=== PATIENT | female | born 1990 | race Caucasian/White ===

== ENCOUNTER 2017-09-06 02:47 | Outpatient (CLI) | payer BC, MEDICAID ==
[~2017-09-06 02:47] MED LIST: ETON68IM; LURA120T PO; QUET-1 PO; SERT25TA PO
== END 2017-09-06 23:59 | disposition home or self-care (01) ==
LOC: DIABETIC 02:47
PROVIDERS: ATTEND Family Medicine
DX: E66.9 Obesity, unspecified (principal)
CPT/HCPCS: 97802

== ENCOUNTER 2018-03-07 01:59 | Outpatient (CLI) | payer MEDICARE, BC, MEDICAID | END 2018-03-07 23:59 | disposition home or self-care (01) | LOC: DIABETIC 01:59 | PROVIDERS: ATTEND Family Medicine | DX: E66.9 Obesity, unspecified (principal) | CPT/HCPCS: 97802 ==

== ENCOUNTER 2018-06-09 02:06 | Outpatient (CLI) | payer MEDICARE, BC, MEDICAID | END 2018-06-09 23:59 | disposition home or self-care (01) | LOC: DIABETIC 02:06 | PROVIDERS: ATTEND Family Medicine | DX: Z71.3 Dietary counseling and surveillance (principal); E66.9 Obesity, unspecified | CPT/HCPCS: 97802 ==

== ENCOUNTER 2018-08-23 02:10 | Outpatient (CLI) | payer MEDICARE, BC, MEDICAID | END 2018-08-23 23:59 | disposition home or self-care (01) | LOC: DIABETIC 02:10 | PROVIDERS: ATTEND Family Medicine | DX: E66.9 Obesity, unspecified (principal); Z71.3 Dietary counseling and surveillance | CPT/HCPCS: 97802 ==

== ENCOUNTER 2018-11-29 04:47 | Outpatient (CLI) | payer MEDICAID | END 2018-11-29 23:59 | disposition home or self-care (01) | LOC: DIABETIC 04:47 | PROVIDERS: ATTEND Family Medicine | DX: E66.9 Obesity, unspecified (principal); Z88.0 Allergy status to penicillin; Z91.041 Radiographic dye allergy status; Z91.013 Allergy to seafood | CPT/HCPCS: 97802 ==

== ENCOUNTER 2019-08-02 18:44 | Emergency (ER) | payer MEDICARE, MEDICAID ==
[~2019-08-02] VITALS: Ht 157.5 cm; Wt 79.0 kg
--- NOTE | 2019-08-02 18:54 | NUR ---
pt moved from triage to RAP room - ER sitter Main standing by. agribusiness internshipHALIE Espinoza aware of pt and that she is conserved.
[2019-08-02 19:39] LABS: BASOPHILS % (AUTO) 0.4 % (0-1); EOSINOPHILS % (AUTO) 0.6 % (0-6); HEMATOCRIT 43.1 % (35.0-45.0); HEMOGLOBIN 14.9 g/dl (12.0-16.0); LYMPHOCYTES # (AUTO) 1.9 X10'3 (1.1-4.8); LYMPHOCYTES % (AUTO) 21.1 % (21-51); MEAN CORPUSCULAR HEMOGLOBIN 32.8 PG (27.0-31.0); MEAN CORPUSCULAR HGB CONC 34.5 g/dL (33.0-36.5); MEAN CORPUSCULAR VOLUME 95.1 FL (78-98); MEAN PLATELET VOLUME 7.2 FL (7.4-10.4); MONOCYTES # (AUTO) 0.8 X10'3 (0-0.9); MONOCYTES % (AUTO) 8.6 % (2-12); NEUTROPHILS # (AUTO) 6.2 X10'3 (1.8-7.7); NEUTROPHILS % (AUTO) 69.3 % (42-75); PLATELET COUNT 193 X10'3 (140-440); RED BLOOD COUNT 4.53 X10'6 (4.20-5.60); RED CELL DISTRIBUTION WIDTH 12.4 % (11.5-14.5); WHITE BLOOD COUNT 8.9 X10'3 (4.5-11.0)
[2019-08-02 19:40] LABS: CLARITY,URINE CLOUDY (Clear); COLOR,URINE YELLOW (Yellow); GLUCOSE, URINE NEGATIVE (Neg); KETONES,URINE NEGATIVE (Neg); LEUKOCYTE ESTERASE ,URINE TRACE (Neg); NITRITES, URINE NEGATIVE (Neg); OCCULT BLOOD,URINE NEGATIVE (Neg); PROTEIN,URINE NEGATIVE (Neg); URINE HCG NEGATIVE (NEG); UROBILINOGEN,URINE 0.2 E.U/dL (0.2-1.0)
[2019-08-02 19:43] LABS: UA COLLECTION TYPE CLN CATCH MIDSTREAM
[2019-08-02 19:46] LABS: BACTERIA,URINE FEW /HPF (Neg); RBC,URINE NONE SEEN /HPF (0-2); SQUAMOUS EPITHELIAL CELL,UR MODERATE /LPF (FEW); TRANSITIONAL EPI CELLS,URINE FEW /HPF; URINE AMPHETAMINE SCREEN NEGATIVE (Neg); URINE BARBITUATE SCREEN NEGATIVE (Neg); URINE BENZODIAZEPINES SCREEN NEGATIVE (Neg); URINE CANNABINOID SCREEN NEGATIVE (Neg); URINE COCAINE SCREEN NEGATIVE (Neg); URINE METHADONE SCREEN NEGATIVE (Neg); URINE OPIATE SCREEN NEGATIVE (Neg); URINE PHENCYCLIDINE SCREEN NEGATIVE (Neg); WBC,URINE 0-4 /HPF (0-4)
[2019-08-02 20:00] LABS: ALANINE AMINOTRANSFERASE 21 U/L (12-78); ALBUMIN 4.2 G/DL (3.4-5.0); ALBUMIN/GLOBULIN RATIO 1.1 (1.1-1.5); ALKALINE PHOSPHATASE 74 IU/L (46-116); ANION GAP 11 (8-16); ASPARTATE AMINO TRANSFERASE 18 U/L (10-37); BILIRUBIN,TOTAL 0.4 MG/DL (0.1-1.0); BLOOD UREA NITROGEN 19 MG/DL (7-18); CALCIUM 9.2 MG/DL (8.5-10.1); CHLORIDE 103 MMOL/L (99-107); CREATININE 0.95 MG/DL (0.40-0.90); GLUCOSE 101 MG/DL (70-104); SODIUM 140 MMOL/L (135-145); TOTAL CARBON DIOXIDE 25.8 MMOL/L (24-32); TOTAL PROTEIN 8.1 G/DL (6.4-8.2); eGFR 70 ML/MIN
[2019-08-02 20:03] LABS: ETHANOL < 0.010 GM/DL (0.0-0.010)
[2019-08-02] MEDS ORDERED: BENZ1TAB7 PO (20:04)
--- NOTE | 2019-08-02 21:07 | NUR ---
Pt packet faxed to [facility]
--- NOTE | 2019-08-02 21:10 | NUR ---
Patients conservator (sister) Nelly called to check on patient. Pt was reported missing initially. Nelly went over patients history and medications with me. She will call tomorrow morning to check on pt. She lives in the [facility] and her phone number is [phone]
[2019-08-02] MEDS: quetiapine 100mg tablet PO SCH (21:20)
[2019-08-02] MEDS: benztropine 1mg tablet PO SCH (21:20)
[2019-08-02] MEDS ORDERED: RISP3TAB3 PO (21:27)
[2019-08-02] MEDS ORDERED: QUET50TA PO (21:27)
--- NOTE | 2019-08-02 21:54 | NUR ---
Officer Rody from [place] [employer] came to talk to Nidia to take her out of their system since she was reported missing. Case # [id number]
--- NOTE | 2019-08-02 23:00 | NUR ---
BREAKING PRIMARY RN - PT REQUESTING SLEEP MEDICATION, PT ORIENTED TO RECENT SLEEP MEDICATION ALREADY GIVEN. PT THEN REQUESTED A SNACK, CRACKERS GIVEN UPON REQUEST. PT EATING QUIETLY.
[2019-08-03] MEDS ORDERED: QUET50TA PO ×2 (06:32→06:37)
[2019-08-03] MEDS ORDERED: RISP3TAB3 PO (06:37)
[2019-08-03] MEDS ORDERED: QUEtiapine 25mg tablet PO PRN (06:55)
[2019-08-03] MEDS ORDERED: risperiDONE 0.5mg tablet PO SCH (08:00)
[2019-08-03] MEDS ORDERED: lurasidone 20mg tablet PO SCH (08:00)
[2019-08-03] MEDS: benztropine 1mg tablet PO SCH ×3 (08:49→20:05)
--- NOTE | 2019-08-03 09:38 | NUR ---
Pt states she is hearing voices in her and they are getting louder. Behavorial health called to see if they could evaluate her. Unable to see her until mental health has evaluated her. Spoke with pt and told her she is safe here with us. Pt trying to distract herself and read abook.
--- NOTE | 2019-08-03 11:25 | NUR ---
Pt's mother called wanting to know when pt is to be released. Lucy Dyson (mother) demanding we release pt, that pt was just doing this for attention. [facility] Quintin Reyes was given message to call mother.
--- NOTE | 2019-08-03 12:09 | NUR ---
Patient awake and reclining in bed. No distress observed. Continue to monitor.
[2019-08-03] MEDS: quetiapine 100mg tablet PO SCH (20:05)
[2019-08-03 20:11] VITALS: BP 122/70
--- NOTE | 2019-08-03 20:16 | NUR ---
Patient is pacing and hearing voices. Patient given her 2100 hr Seroquel at 2100
== END 2019-08-03 21:03 ==
LOC: ER 18:45
DX: F25.9 Schizoaffective disorder, unspecified (principal); F29 Unspecified psychosis not due to a substance or known physiological condition; F41.9 Anxiety disorder, unspecified; R45.851 Suicidal ideations; Z98.890 Other specified postprocedural states; Z88.0 Allergy status to penicillin; Z88.6 Allergy status to analgesic agent; Z91.018 Allergy to other foods; Z79.899 Other long term (current) drug therapy
CPT/HCPCS: 36415; 80053; 80305; 80320; 81001; 81025; 84443; 85025; 99285

== ENCOUNTER 2019-08-03 18:40 | Inpatient (IN) | payer MEDICARE, MEDICAID ==
[~2019-08-03] VITALS: Ht 157.5 cm; Wt 78.1 kg
[~2019-08-03 18:40] MED LIST changes: +BENZ1TAB7 PO; +QUET50TA PO; +RISP3TAB3 PO; -SERT25TA PO
[2019-08-03] MEDS ORDERED: FLU VACC QS 2019-20 (6 MOS UP) 60 MCG/0.5 ML VIAL IMVAC ONE (22:35)
[2019-08-03 22:48] VITALS: BP 108/70
--- NOTE | 2019-08-04 00:08 | NUR ---
Admit note: Pt self presented to ER stating she had increasing voices and thoughts to harm others. Reports she wants to get help because she doesn't want to hurt anybody in her shelter. Pt also presented with S/I with a plan to "get something sharp and cut my wrist". Pt brought to the unit via wheel chair by Karey GUERRERO from ER. Two RN skin assessment completed, belonging list and contraband check completed. Pt shown around unit. Pt is cooperative for admission process. She states she still has S/I with the same plan and that her voices have been increasing since wednesday and they tell her to harm others. Med req completed. Pt is conserved and lives at shelter called [facility]. Pt goes to sleep after admission process.
[2019-08-04] MEDS ORDERED: loperamide 2mg capsule PO PRN (02:05)
[2019-08-04] MEDS ORDERED: mag hydrox/Alum hydrox/simeth 30ml oral suspension PO PRN (02:05)
[2019-08-04] MEDS ORDERED: acetaminophen 325mg tablet PO PRN ×2 (02:05)
[2019-08-04] MEDS ORDERED: magnesium hydroxide 30ml (MOM) UD suspension PO PRN (02:05)
[2019-08-04] MEDS: hydrOXYzine 25 MG tablet PO PRN (02:26)
[2019-08-04] MEDS: LORazepam 1 MG tablet PO PRN ×2 (06:43→15:26)
[2019-08-04] MEDS: QUEtiapine 25mg tablet PO PRN ×2 (06:43→15:26)
[2019-08-04 06:59] LABS: HEMOGLOBIN A1C 4.8 % (4.5-6.2)
[2019-08-04 07:02] LABS: CHOL/HDL RATIO 2.6 (0.00-4.99); CHOLESTEROL 183 MG/DL (0-200); HDL CHOLESTEROL 70 MG/DL (35-60); LDL CHOLESTEROL 111 MG/DL (50-100); TRIGLYCERIDES 36 MG/DL (20-135)
[2019-08-04] MEDS: risperiDONE 0.5mg tablet PO SCH (07:33)
[2019-08-04] MEDS: risperiDONE 2mg tablet PO SCH (07:34)
[2019-08-04] MEDS: benztropine 1mg tablet PO SCH ×3 (07:35→20:51)
[2019-08-04 07:53] VITALS: BP 115/74
[2019-08-04] MEDS ORDERED: lurasidone 20mg tablet PO SCH (08:00)
[2019-08-04] MEDS ORDERED: zolpidem 5mg tablet PO ONE ×2 (16:15→21:00)
--- NOTE | 2019-08-04 16:17 | NUR ---
Nursing Progress Note Nidia Legal hold: 5150 Client on involuntary status for DTO Report received from nurse with use of SBAR: Merari Mcgrath RN Why are they here:Pt self presented to ER stating she had increasing voices and thoughts to harm others. Reports she wants to get help because she doesn't want to hurt anybody in her residential. Pt also presented with S/I with a plan to "get something sharp and cut my wrist". Pt brought to the unit via wheel chair by Karey GUERRERO from ER. Two RN skin assessment completed, belonging list and contraband check completed. Pt shown around unit. Pt is cooperative for admission process. She states she still has S/I with the same plan and that her voices have been increasing since wednesday and they tell her to harm others. Med req completed. Pt is conserved and lives at residential called [facility]. Pt goes to sleep after admission process. Assessment What has happened this shift: Nail Kegger assumed care of this client at 0600 hours. Client was awake and complained of hearing voices telling her to, "go hurt people" Client was given Prn of Ativan as well as Seroquel per orders with good effect obtained. Client also complained of left knee pain and was given Tylenol PRN as ordered. Client has been visible on the unit and behaviors have been appropriate. She appears to be internally preoccupied but states that the voices have, "slowed down". Client behavior has been appropriate and she is seeking staff to meet her needs. Client attended groups and participated with no issues. She has required PRN coverage x 2 this shift with combination of Seroquel and Ativan per orders with good effect this shift. She has had a few phone calls today and appears goal and discharge oriented. She denies being a danger to anyone including herself. S/I, H/I: voices want her to harm people A/VH:as above Sleep: 6.5hr NOC ADL's: Independent Group attendance: attended Groups Were meds taken: yes Any med S/E: None reported/observed Mental Status Exam Appearance: appropriately dressed, good hygiene Eye contact: Direct Behavior: Cooperative Speech: pressured Mood: content: guarded Affect: restricted Thought process: Internally preoccupied Thought Content: delusional thought persecutory content expressed Cognition: A&O X3 Insight: Poor Judgment: Poor Interventions PRN's used: valium Therapeutic interventions: 1:1 therapeutic assessment, maintained safe therapeutic milieu, provided active listening with positive reinforcement, provided medication administration/education/monitoring as needed; Q15 safety checks. Restraints/seclusion/emergency medication: N/A Justification of Continued Inpatient Treatment: Per Michael Kwan PA, pt. is still paranoid and if discharged readmission would be very likely.Continued therapeutic support and medication management needed to provide stabilization, prevent decompensation, improve coping mechanisms decreasing risk to patient and re-admittance.
--- NOTE | 2019-08-04 16:28 | NUR ---
Sp[facility] to Corrie[facility] (ph# [phone]), and requested [facility] paperwork. She dropped off the conservatorship report, not [facility]. Called Ct's mother, Lucy (ph# [phone]), who is currently on vacation and unable to fax the paperwork. She provided the sister's number. Called Nelly Dyson ([phone]) who reported she will email the paperwork to proposal manager writer. She reported the plan is for Ct to return to the [facility]. She reported Ct had a new therapist and this may have triggered the events that led to her coming to the ER. UZIEL Ramirez
[2019-08-04 19:56] VITALS: BP 115/82
[2019-08-04] MEDS ORDERED: quetiapine 100mg tablet PO SCH ×2 (21:00)
--- NOTE | 2019-08-05 00:55 | NUR ---
Nursing Progress Note Nidia Legal hold: 5150 Client on involuntary status for DTO Report received from nurse with use of SBAR: GAYLA Stevens Why are they here:Pt self presented to ER stating she had increasing voices and thoughts to harm others. Reports she wants to get help because she doesn't want to hurt anybody in her fpc. Pt also presented with S/I with a plan to "get something sharp and cut my wrist". Pt brought to the unit via wheel chair by Karey GUERRERO from ER. Two RN skin assessment completed, belonging list and contraband check completed. Pt shown around unit. Pt is cooperative for admission process. She states she still has S/I with the same plan and that her voices have been increasing since wednesday and they tell her to harm others. Med req completed. Pt is conserved and lives at fpc called [facility]. Pt goes to sleep after admission process. Assessment What has happened this shift: Pt was seen pacing the isles during change of shift. This expert medical writer introduced self to pt. Pt asked for her medications early and when they would be administered. Pt was cooperative and friendly during 1:1 assessment. Re[ S/I, H/I: voices want her to harm people A/VH:as above Sleep: 6.5hr NOC ADL's: Independent Group attendance: attended Groups Were meds taken: yes Any med S/E: None reported/observed Mental Status Exam Appearance: appropriately dressed, good hygiene Eye contact: Direct Behavior: Cooperative Speech: pressured Mood: content: guarded Affect: restricted Thought process: Internally preoccupied Thought Content: delusional thought persecutory content expressed Cognition: A&O X3 Insight: Poor Judgment: Poor Interventions PRN's used: none Therapeutic interventions: 1:1 therapeutic assessment, maintained safe therapeutic milieu, provided active listening with positive reinforcement, provided medication administration/education/monitoring as needed; Q15 safety checks. Restraints/seclusion/emergency medication: N/A Justification of Continued Inpatient Treatment: Per POOJA Fatima, pt. is still paranoid and if discharged readmission would be very likely.Continued therapeutic support and medication management needed to provide stabilization, prevent decompensation, improve coping mechanisms decreasing risk to patient and re-admittance.
[2019-08-05 07:49] VITALS: BP 93/59
[2019-08-05] MEDS: nitrofuran/nitrofuran macrocrysal 100 MG capsule PO SCH ×2 (08:34→17:31)
[2019-08-05] MEDS: benztropine 1mg tablet PO SCH ×3 (08:34→20:24)
[2019-08-05] MEDS: risperiDONE 2mg tablet PO SCH (08:34)
[2019-08-05] MEDS: risperiDONE 0.5mg tablet PO SCH (08:34)
[2019-08-05] MEDS: QUEtiapine 25mg tablet PO PRN (13:47)
--- NOTE | 2019-08-05 15:26 | NUR ---
Nursing Progress Note Nidia Legal hold: 5150 expires 08/06 @ 2130 Client on involuntary status for DTO/DTS Report received from nurse with use of SBAR: GAYLA Valerio Why are they here: Pt self presented to ER stating she had increasing voices and thoughts to harm others. Reports she wants to get help because she doesn't want to hurt anybody in her [facility]. Pt also presented with S/I with a plan to "get something sharp and cut my wrist". Pt brought to the unit via wheel chair by Karey GUERRERO from ER. Two RN skin assessment completed, belonging list and contraband check completed. Pt shown around unit. Pt is cooperative for admission process. She states she still has S/I with the same plan and that her voices have been increasing since wednesday and they tell her to harm others. Med req completed. Pt is conserved and lives at [facility] called [facility]. Pt goes to sleep after admission process. Assessment What has happened this shift: Patient approached staff early in shift requesting water. When taken water, patient was in bed and soundly sleeping. Upon awakening, she stated she felt very groggy, but also felt she had experienced a very good nights sleep. Compliant with MH and physical assessment. Admits to continued audio hallucinations directing her to harm others. She does not demonstrate in actions to these voices. Requested PRN for increasing voices with good effect. Has been more animated today interacting more with staff and others on the unit. Remains very pleasant and appreciative of staff support. S/I, H/I: voices want her to harm people A/VH: Voices directing her to harm others Sleep: 7.75 hr ADL's: Independent Group attendance: yes Were meds taken: yes Any med S/E: None reported/observed Mental Status Exam Appearance: appropriately dressed, good hygiene Eye contact: Direct Behavior: Cooperative Speech: Normal rate, rhythm Mood: sad, anxious Affect: congruent with mood Thought process: Linear Thought Content: voices telling her to harm others Cognition: A&O X3 Insight: Poor Judgment: Poor Interventions PRN's used: Seroquel Therapeutic interventions: 1:1 therapeutic assessment, maintained safe therapeutic milieu, provided active listening with positive reinforcement, provided medication administration/education/monitoring as needed; Q15 safety checks. Restraints/seclusion/emergency medication: N/A Justification of Continued Inpatient Treatment: Per Michael Kwan PA, pt. is still paranoid and if discharged readmission would be very likely.Continued therapeutic support and medication management needed to provide stabilization, prevent decompensation, improve coping mechanisms decreasing risk to patient and re-admittance.
[2019-08-05] MEDS: lurasidone 20mg tablet PO SCH (17:31)
[2019-08-05] MEDS ORDERED: lurasidone 20mg tablet PO SCH (18:00)
[2019-08-05 20:00] VITALS: BP 123/77
[2019-08-05] MEDS: LORazepam 1 MG tablet PO PRN (20:24)
[2019-08-05] MEDS ORDERED: quetiapine 100mg tablet PO SCH (21:00)
--- NOTE | 2019-08-05 21:31 | NUR ---
Nursing Progress Note Nidia Legal hold: 5150 expires 08/06 @ 2130 Client on involuntary status for DTO/DTS Report received from nurse with use of SBAR: GAYLA Stevens Why are they here: Pt self presented to ER stating she had increasing voices and thoughts to harm others. Reports she wants to get help because she doesn't want to hurt anybody in her custodial. Pt also presented with S/I with a plan to "get something sharp and cut my wrist". Pt brought to the unit via wheel chair by Karey GUERRERO from ER. Two RN skin assessment completed, belonging list and contraband check completed. Pt shown around unit. Pt is cooperative for admission process. She states she still has S/I with the same plan and that her voices have been increasing since wednesday and they tell her to harm others. Med req completed. Pt is conserved and lives at custodial called [facility]. Pt goes to sleep after admission process. Assessment What has happened this shift: Patient up and social with peers. Pt asked when her meds would be ready several times.She stated that she was anxious and needed something to help her sleep. Compliant with MH and physical assessment. Admits to continued audio hallucinations directing her to harm others. She does not demonstrate in actions to these voices. Has been more animated today interacting more with staff and others on the unit. Remains very pleasant and appreciative of staff support. S/I, H/I: voices want her to harm people A/VH: Voices directing her to harm others Sleep: 7.75 hr ADL's: Independent Group attendance: yes Were meds taken: yes Any med S/E: None reported/observed Mental Status Exam Appearance: appropriately dressed, good hygiene Eye contact: Direct Behavior: Cooperative Speech: Normal rate, rhythm Mood: sad, anxious Affect: congruent with mood Thought process: Linear Thought Content: voices telling her to harm others Cognition: A&O X3 Insight: Poor Judgment: Poor Interventions PRN's used: Ativan Therapeutic interventions: 1:1 therapeutic assessment, maintained safe therapeutic milieu, provided active listening with positive reinforcement, provided medication administration/education/monitoring as needed; Q15 safety checks. Restraints/seclusion/emergency medication: N/A Justification of Continued Inpatient Treatment: POOJA Mack, pt. is still paranoid and if discharged readmission would be very likely.Continued therapeutic support and medication management needed to provide stabilization, prevent decompensation, improve coping mechanisms decreasing risk to patient and re-admittance. Addendum: 08/06/19 at 0326 by Markus Laughlin RN Yas Bowens for difficulty sleeping.
[2019-08-06] MEDS: QUEtiapine 25mg tablet PO PRN (02:39)
[2019-08-06] MEDS: hydrOXYzine 25 MG tablet PO PRN (02:40)
[2019-08-06 07:16] VITALS: BP 107/65
[2019-08-06] MEDS: nitrofuran/nitrofuran macrocrysal 100 MG capsule PO SCH ×2 (07:53→17:45)
[2019-08-06] MEDS: risperiDONE 2mg tablet PO SCH (07:54)
[2019-08-06] MEDS: benztropine 1mg tablet PO SCH ×2 (07:54→21:21)
[2019-08-06] MEDS: risperiDONE 0.5mg tablet PO SCH (09:02)
[2019-08-06] MEDS ORDERED: flumazenil 0.1 mg/ml inj. IV ONE (10:25)
[2019-08-06] MEDS ORDERED: benztropine 1mg tablet PO SCH (13:00)
--- NOTE | 2019-08-06 15:17 | NUR ---
Nursing Progress Note Nidia Legal hold: 5150 expires 08/06 @ 2130 Client on involuntary status for DTO/DTS Report received from nurse with use of SBAR: GAYLA Valerio Why are they here: Pt self presented to ER stating she had increasing voices and thoughts to harm others. Reports she wants to get help because she doesn't want to hurt anybody in her [place] [facility]. Pt also presented with S/I with a plan to "get something sharp and cut my wrist". Pt brought to the unit via wheel chair by Karey GUERRERO from ER. Two RN skin assessment completed, belonging list and contraband check completed. Pt shown around unit. Pt is cooperative for admission process. She states she still has S/I with the same plan and that her voices have been increasing since wednesday and they tell her to harm others. Med req completed. Pt is conserved and lives at [place] [facility] called [facility]. Pt goes to sleep after admission process. Assessment What has happened this shift: Patient out of bed, initially complains to this typewriter ribbon winder that her Ambien was discontinued. States she was unable to sleep although sleep assessment documents 6.5 hours. Reviewed provider note which states intent to continue the Ambien. Explained to patient who verbalized understanding with a plan to follow up with the provider to clarify order. Requested this typewriter ribbon winder braid her hair which was done, and then asked to change the linen on her bed. Is very animated related to a visit from her grandmother, her boyfriend and his mother this morning. Boyfriend was unable to visit at 10 and states will be here at 7pm. Patient received roses, a jayme bear, and other items from him. Has been in room working on a puzzle which was brought in for her. Has been most upbeat. S/I, H/I: No A/VH: voices, described as quite and easily distractable Sleep: 6.5 hr ADL's: Independent Group attendance: yes Were meds taken: yes Any med S/E: None reported/observed Mental Status Exam Appearance: appropriately dressed, good hygiene Eye contact: Direct Behavior: Cooperative Speech: Normal rate, rhythm Mood: Elated Affect: congruent with mood Thought process: Linear Thought Content: Visit from family Cognition: A&O X3 Insight: Poor Judgment: Poor Interventions PRN's used: Therapeutic interventions: 1:1 therapeutic assessment, maintained safe therapeutic milieu, provided active listening with positive reinforcement, provided medication administration/education/monitoring as needed; Q15 safety checks. Restraints/seclusion/emergency medication: N/A Justification of Continued Inpatient Treatment: Per POOJA Fatima, pt. is still paranoid and if discharged readmission would be very likely.Continued therapeutic support and medication management needed to provide stabilization, prevent decompensation, improve coping mechanisms decreasing risk to patient and re-admittance.
[2019-08-06] MEDS: lurasidone 20mg tablet PO SCH (17:44)
[2019-08-06 19:30] VITALS: BP 122/68
[2019-08-06] MEDS: zolpidem 5mg tablet PO SCH (20:24)
--- NOTE | 2019-08-06 22:06 | NUR ---
Nursing Progress Note Nidia Legal hold: 5150 expires 08/06 @ 2130 Client on involuntary status for DTO/DTS Report received from nurse with use of SBAR: GAYLA Stevens Why are they here: Pt self presented to ER stating she had increasing voices and thoughts to harm others. Reports she wants to get help because she doesn't want to hurt anybody in her [place] [facility]. Pt also presented with S/I with a plan to "get something sharp and cut my wrist". Pt brought to the unit via wheel chair by Karey GUERRERO from ER. Two RN skin assessment completed, belonging list and contraband check completed. Pt shown around unit. Pt is cooperative for admission process. She states she still has S/I with the same plan and that her voices have been increasing since wednesday and they tell her to harm others. Med req completed. Pt is conserved and lives at [place] [facility]. Pt goes to sleep after admission process. Assessment What has happened this shift: Patient up in heart social with peers. Reviewed provider note which states intent to continue the Ambien. Is very animated related to a visit from her grandmother, her boyfriend and his mother this morning. Boyfriend was unable to visit at 10 and states was here at 7pm. Pt has been in room working on a puzzle which was brought in for her. Has been most upbeat. Pt states that she had a good day. S/I, H/I: No A/VH: voices, described as quite and easily distractable Sleep: 6.5 hr ADL's: Independent Group attendance: yes Were meds taken: yes Any med S/E: None reported/observed Mental Status Exam Appearance: appropriately dressed, good hygiene Eye contact: Direct Behavior: Cooperative Speech: Normal rate, rhythm Mood: Elated Affect: congruent with mood Thought process: Linear Thought Content: Visit from family Cognition: A&O X3 Insight: Poor Judgment: Poor Interventions PRN's used: Therapeutic interventions: 1:1 therapeutic assessment, maintained safe therapeutic milieu, provided active listening with positive reinforcement, provided medication administration/education/monitoring as needed; Q15 safety checks. Restraints/seclusion/emergency medication: N/A Justification of Continued Inpatient Treatment: POOJA Mack, pt. is still paranoid and if discharged readmission would be very likely.Continued therapeutic support and medication management needed to provide stabilization, prevent decompensation, improve coping mechanisms decreasing risk to patient and re-admittance.
[2019-08-07 07:27] VITALS: BP 112/62
[2019-08-07] MEDS: nitrofuran/nitrofuran macrocrysal 100 MG capsule PO SCH ×2 (07:47→17:39)
[2019-08-07] MEDS: risperiDONE 2mg tablet PO SCH (07:47)
[2019-08-07] MEDS: benztropine 1mg tablet PO SCH ×3 (07:47→20:04)
[2019-08-07] MEDS: risperiDONE 0.5mg tablet PO SCH (07:47)
--- NOTE | 2019-08-07 10:42 | NUR ---
DISCHARGE PLANNING Called [facility] to set up a follow up appt with Dr Shaver at his request. Spoke to Zurdo who reported she will talk to Dr Shaver tomorrow and call film writer back tomorrow. UZIEL Ramirez
--- NOTE | 2019-08-07 13:28 | NUR ---
Nursing Progress Note: Legal hold: N/A Client on voluntary status Report received from nurse with use of SBAR: Markus BURDICK Why are they here: Pt self presented to ER stating she had increasing voices and thoughts to harm others. Reports she wants to get help because she doesn't want to hurt anybody in her jail. Pt also presented with S/I with a plan to "get something sharp and cut my wrist". Pt brought to the unit via wheel chair by Karey GUERRERO from ER. Two RN skin assessment completed, belonging list and contraband check completed. Pt shown around unit. Pt is cooperative for admission process. She states she still has S/I with the same plan and that her voices have been increasing since wednesday and they tell her to harm others. Med req completed. Pt is conserved and lives at jail called [facility]. Pt goes to sleep after admission process. Assessment What has happened this shift: Pt denied depression, anxiety, SI/HI/AH/VH, reports sleeping well last night. Pt stated that the voices have stopped, she believes because of her Cogentin dose being decreased. Pt wishes to return home, states she misses her boyfriend and her animals and wants to get back to work. Pt had previously been fearful that she had lost her job and is relieved that she has not. Pt drank 4 water pitchers this morning before 1040 and was asking for another refill. Pt stated she was drinking so much because her mouth was dry. Education and limit setting provided on excess water consumption. Told pt she could have cups of water from the pitcher in the community room but her pitcher would not be refilled until around dinner time, a few hard candies provided. Pt expressed understanding. Pt stated that she is lactose intolerant and the kitchen keeps sending her regular milk. Updated allergies and diet order. S/I, H/I: Pt denies A/VH: Pt denies, states that the voices have stopped. Sleep: Pt stated that she slept well last night after taking Ambien ADL's: Independent Group attendance: yes Were meds taken: yes Any med S/E: Dry mouth Mental Status Exam Appearance: Clean,dressed in street clothes Eye contact: Good Behavior: Pleasant, cooperative, childlike, somewhat needy Speech: Speech fast and somewhat slurred at times Mood: Good Affect: Bright Thought process: Linear, future oriented Thought Content: Wants to get back to BF, family, animals, and job Cognition: A/O X 4 Insight: Fair Judgment: Fair Interventions PRN's used: N/A Therapeutic interventions: 1:1 assessment, establishment of rapport, active listening, therapeutic conversation, medication administration/education/monitoring, limit setting, positive reinforcement; Q15 safety checks. Restraints/seclusion/emergency medication: N/A Justification of Continued Inpatient Treatment: Medications are still being adjusted with goal to optimize Latuda dose and wean off of Risperdal to prevent decompensation, decreasing risk to patient and re-admittance current plan is to discharge in 2-3 days.
[2019-08-07] MEDS: lurasidone 20mg tablet PO SCH (17:40)
[2019-08-07] MEDS: zolpidem 5mg tablet PO SCH (20:04)
[2019-08-07 20:09] VITALS: BP 103/68
[2019-08-07] MEDS ORDERED: lurasidone 20mg tablet PO ONE (20:15)
--- NOTE | 2019-08-07 20:56 | NUR ---
Nursing Progress Note: Legal hold: N/A Client on voluntary status Report received from nurse with use of SBAR: Hilda AMBROSE Why are they here: Pt self presented to ER stating she had increasing voices and thoughts to harm others. Reports she wants to get help because she doesn't want to hurt anybody in her senior care. Pt also presented with S/I with a plan to "get something sharp and cut my wrist". Pt brought to the unit via wheel chair by Karey GUERRERO from ER. Two RN skin assessment completed, belonging list and contraband check completed. Pt shown around unit. Pt is cooperative for admission process. She states she still has S/I with the same plan and that her voices have been increasing since wednesday and they tell her to harm others. Med req completed. Pt is conserved and lives at senior care called [facility]. Pt goes to sleep after admission process. Assessment What has happened this shift: Pt denied depression, anxiety, SI/HI/AH/VH, reports sleeping well last night. Pt stated that the voices have stopped, she believes because of her Cogentin dose being decreased. Pt wishes to return home, states she misses her boyfriend and her animals and wants to get back to work. Pt had previously been fearful that she had lost her job and is relieved that she has not. Pt's boy friend visited which she was very happy about. Started Latuda this shift, and is looking forword to D/c soon. S/I, H/I: Pt denies A/VH: Pt denies, states that the voices have stopped. Sleep: Pt stated that she slept well last night after taking Ambien ADL's: Independent Group attendance: yes Were meds taken: yes Any med S/E: Dry mouth Mental Status Exam Appearance: Clean,dressed in street clothes Eye contact: Good Behavior: Pleasant, cooperative, childlike, somewhat needy Speech: Speech fast and somewhat slurred at times Mood: Good Affect: Bright Thought process: Linear, future oriented Thought Content: Wants to get back to BF, family, animals, and job Cognition: A/O X 4 Insight: Fair Judgment: Fair Interventions PRN's used: N/A Therapeutic interventions: 1:1 assessment, establishment of rapport, active listening, therapeutic conversation, medication administration/education/monitoring, limit setting, positive reinforcement; Q15 safety checks. Restraints/seclusion/emergency medication: N/A Justification of Continued Inpatient Treatment: Medications are still being adjusted with goal to optimize Latuda dose and wean off of Risperdal to prevent decompensation, decreasing risk to patient and re-admittance current plan is to discharge in 2-3 days.
[2019-08-08 07:21] VITALS: BP 103/51
[2019-08-08] MEDS: risperiDONE 2mg tablet PO SCH (07:21)
[2019-08-08] MEDS: benztropine 1mg tablet PO SCH ×3 (08:01→20:17)
[2019-08-08] MEDS: nitrofuran/nitrofuran macrocrysal 100 MG capsule PO SCH ×2 (08:21→16:38)
--- NOTE | 2019-08-08 10:45 | NUR ---
DISCHARGE PLANNING Spoke to Corrie FpcSales Service Technician (ph# [phone]) and informed her that Ct will be discharging or Wednesday. She requested her medications get called in to [facility]. She reported she can steel pickler Ct upon discharge. UZIEL Ramirez
--- NOTE | 2019-08-08 16:35 | NUR ---
Nursing Progress Note: Nidia Legal hold: N/A Client on voluntary status Report received from nurse with use of SBAR: Kelly RN Why are they here: Pt self presented to ER stating she had increasing voices and thoughts to harm others. Reports she wants to get help because she doesn't want to hurt anybody in her jail. Pt also presented with S/I with a plan to "get something sharp and cut my wrist". Pt brought to the unit via wheel chair by Karey GUERRERO from ER. Two RN skin assessment completed, belonging list and contraband check completed. Pt shown around unit. Pt is cooperative for admission process. She states she still has S/I with the same plan and that her voices have been increasing since wednesday and they tell her to harm others. Med req completed. Pt is conserved and lives at jail called [facility]. Pt goes to sleep after admission process. Assessment What has happened this shift: Client has been visible on unit all shift and has been compliant with all aspects of her care. She will discharge home in next couple of days and she is excited and goal oriented. Client demonstrates improving insight and seems goal oriented for her discharge. S/I, H/I: Pt denies A/VH: Pt denies, states that the voices have stopped. Sleep: 8 hours last shift. ADL's: Independent Group attendance: Were meds taken: yes Any med S/E: Dry mouth Mental Status Exam Appearance: Clean,dressed in street clothes Eye contact: Good Behavior: Pleasant, cooperative, childlike, somewhat needy Speech: Speech fast and somewhat slurred at times Mood: Good Affect: Bright Thought process: Linear, future oriented Thought Content: Wants to get back to BF, family, animals, and job Cognition: A/O X 4 Insight: Fair Judgment: Fair Interventions PRN's used: N/A Therapeutic interventions: 1:1 assessment, establishment of rapport, active listening, therapeutic conversation, medication administration/education/monitoring, limit setting, positive reinforcement; Q15 safety checks. Restraints/seclusion/emergency medication: N/A Justification of Continued Inpatient Treatment: Medications are still being adjusted with goal to optimize Latuda dose and wean off of Risperdal to prevent decompensation, decreasing risk to patient and re-admittance current plan is to discharge in 2-3 days.
[2019-08-08] MEDS: lurasidone 20mg tablet PO SCH (17:59)
[2019-08-08] MEDS: zolpidem 5mg tablet PO SCH (20:17)
[2019-08-08 20:18] VITALS: BP 108/81
--- NOTE | 2019-08-08 21:04 | NUR ---
Nursing Progress Note: Nidia Legal hold: N/A Client on voluntary status Report received from nurse with use of SBAR: HALIE Stevens Why are they here: Pt self presented to ER stating she had increasing voices and thoughts to harm others. Reports she wants to get help because she doesn't want to hurt anybody in her custodial. Pt also presented with S/I with a plan to "get something sharp and cut my wrist". Pt brought to the unit via wheel chair by Karey GUERRERO from ER. Two RN skin assessment completed, belonging list and contraband check completed. Pt shown around unit. Pt is cooperative for admission process. She states she still has S/I with the same plan and that her voices have been increasing since wednesday and they tell her to harm others. Med req completed. Pt is conserved and lives at custodial called [facility]. Pt goes to sleep after admission process. Assessment What has happened this shift: Client has been visible on unit all shift and has been compliant with all aspects of her care. She will discharge home in next couple of days and she is excited and goal oriented. Client demonstrates improving insight and seems goal oriented for her discharge. Today pt was up social with peers helping her room mate with her needs. S/I, H/I: Pt denies A/VH: Pt denies, states that the voices have stopped. Sleep: 8 hours last shift. ADL's: Independent Group attendance: Were meds taken: yes Any med S/E: Dry mouth Mental Status Exam Appearance: Clean,dressed in street clothes Eye contact: Good Behavior: Pleasant, cooperative, childlike, somewhat needy Speech: Speech fast and somewhat slurred at times Mood: Good Affect: Bright Thought process: Linear, future oriented Thought Content: Wants to get back to BF, family, animals, and job Cognition: A/O X 4 Insight: Fair Judgment: Fair Interventions PRN's used: N/A Therapeutic interventions: 1:1 assessment, establishment of rapport, active listening, therapeutic conversation, medication administration/education/monitoring, limit setting, positive reinforcement; Q15 safety checks. Restraints/seclusion/emergency medication: N/A Justification of Continued Inpatient Treatment: Medications are still being adjusted with goal to optimize Latuda dose and wean off of Risperdal to prevent decompensation, decreasing risk to patient and re-admittance current plan is to discharge in 2-3 days.
[2019-08-09 07:30] VITALS: BP 110/68
[2019-08-09] MEDS: benztropine 1mg tablet PO SCH ×3 (08:22→20:07)
[2019-08-09] MEDS: nitrofuran/nitrofuran macrocrysal 100 MG capsule PO SCH ×2 (08:23→17:52)
[2019-08-09] MEDS: risperiDONE 0.5mg tablet PO SCH (08:23)
--- NOTE | 2019-08-09 11:16 | NUR ---
DISCHARGE PLANNING Called Zurdo at [facility], [facility], to schedule Ct a follow up appt with Dr Shaver. She reported she had not spoken to Dr Shaver yet and once she does she will call filing writer back. UZIEL Ramirez
--- NOTE | 2019-08-09 14:20 | NUR ---
Great appetite, eating well, 75-100 PO intake of vegetarian diet. No nutrition problem at this time. Will continue to follow. Recommend: 1. continue vegetarian diet 2. lactose intolerant, sending soy milk with meals instead 3. weekly weights 4. bowel care as needed Addendum: 08/09/19 at [address] Amended: Links added.
--- NOTE | 2019-08-09 14:44 | NUR ---
Nursing Progress Note Legal hold: N/A Client on voluntary status Report received from nurse, HALIE Mendoza with use of SBAR Why are they here: Pt self presented to ER stating she had increasing voices and thoughts to harm others. Reports she wants to get help because she doesn't want to hurt anybody in her skilled nursing. Pt also presented with S/I with a plan to "get something sharp and cut my wrist". Pt brought to the unit via wheel chair by Karey GUERRERO from ER. Two RN skin assessment completed, belonging list and contraband check completed. Pt shown around unit. Pt is cooperative for admission process. She states she still has S/I with the same plan and that her voices have been increasing since wednesday and they tell her to harm others. Med req completed. Pt is conserved and lives at skilled nursing called [facility]. Pt goes to sleep after admission process. Assessment What has happened this shift: Patient is up at start of shift. Pt spent most of the shift perseverating over her discharge and then somatic gastrointestinal illnesses. She follows directions well is pleasant but needy all shift. Pt required attention and emotional comforting constantly and consistently throughout the shift. S/I, H/I: Pt denies A/VH: Pt denies, states that the voices have stopped. Sleep: she laid down back and forth, up and down all shift. ADL's: Independent Group attendance: yes Were Meds taken: yes Any med S/E: None noted or reported Mental Status Exam Appearance: Clean; nicely dressed her personal clothing Eye contact: Good Behavior: Pleasant, cooperative somewhat anxious and needy Speech: Normal rate and rhythm Mood: Good Affect: Bright Thought process: Linear, future oriented Thought Content: discharge; not feeling well Cognition: A/O X 4 Insight: Fair Judgment: Fair Interventions PRN's used: N/A Therapeutic interventions: 1:1 assessment, establishment of rapport, active listening, therapeutic conversation, medication administration/education/monitoring, positive reinforcement; Q15 safety checks. Restraints/seclusion/emergency medication: N/A Justification of Continued Inpatient Treatment: Medications are still being adjusted with goal to optimize Latuda dose and wean off of Risperdal to prevent decompensation, decreasing risk to patient and re-admittance current plan is to discharge in 2-3 days.
[2019-08-09] MEDS: lurasidone 20mg tablet PO SCH (17:52)
[2019-08-09 20:00] VITALS: BP 124/83
[2019-08-09] MEDS: zolpidem 5mg tablet PO SCH (20:07)
--- NOTE | 2019-08-09 23:47 | NUR ---
Nursing Progress Note: Legal hold: Voluntary Client on voluntary DTS/DTO[]. Report received from nurse with use of SBAR: HALIE Herrera Why are they here: Pt self presented to ER stating she had increasing A/GALLARDO, and thoughts to harm others. Reports she wants to get help because she doesn't want to hurt anybody in her fdc. Pt also presented with S/I with a plan to "get something sharp and cut my wrist". Pt is conserved and lives at fdc called [facility]. She has a history of schizoaffective D/O and mild cognitive disabilities. Assessment What has happened this shift: Pt. up restlessly walking in the hallway at the beginning of the shift, upon seeing this health underwriter she impulsively approaches and requests a soda for abdominal bloating and gas s/s. This health underwriter was unable to obtain a soda for pt. and she refused to take PRN Maalox, however pt. then requested a snack. She stated, "They did not give me much I can eat because I am a vegetarian." Peanut butter and jelly sandwich given to pt. and she reported content. Pt. requests HS medications to be administered at 2000 and retreats to bed directly following HS snack. 1:1 completed at bedside, pt. denies any S/I or HI. When this health underwriter questions her regarding H/A, she states, "They are gone!" She does not appear to be internally preoccupied, however does request to wear headphones to bed in order to drown out any noises. Pt. reports that she is excited to get back home to her [facility] which she has lived at for the past five years. She states, "I have two cats there, and I am high functioning!" S/I, H/I: Denies A/VH: Denies, does not appear to be internally preoccupied, however does request to wear headphones to bed in order to drown out any noises. Sleep: Pt. reports she sleeps well with scheduled Ambien, will continue to monitor. ADL's: Requires some prompting and direction at times. Group attendance: Pt. attends HS snack Were meds taken: Yes Any med S/E: None Mental Status Exam Appearance: Neat and appropriately dressed Eye contact: Good Behavior: Cooperative, restless, and impulsive at times however able to be redirected Speech: Pressured and hyperverbal at times, however other times WNL Mood: Pleasant Affect: Animated Thought process: WNL, goal directed Thought Content: Preoccupation with some somatic s/s and discharge Cognition: A&O X4 Insight: Fair Judgment: Fair Interventions PRN's used: None Therapeutic interventions: Ensured contract for safety, provided clear and simple instructions, reoriented to reality, monitored behavior and need for intervention, provided redirection as needed, and maintained Q 15 min safety checks. Restraints/seclusion/emergency medication: N/A Justification of Continued Inpatient Treatment: Per Dr. Shaver, pt. continues to require medication adjustments and a safe and supportive environment. Discharge is pending if pt. continues to do well.
[2019-08-10 07:19] VITALS: BP 110/63
[2019-08-10] MEDS: risperiDONE 0.5mg tablet PO SCH (08:00)
[2019-08-10] MEDS: benztropine 1mg tablet PO SCH ×2 (08:01→12:08)
[2019-08-10] MEDS ORDERED: ZOLP5TAB8 PO (12:57)
[2019-08-10] MEDS ORDERED: LURA20TA PO (12:57)
[2019-08-10] MEDS ORDERED: LURA80TA3 PO (12:57)
[2019-08-10] MEDS ORDERED: BENZ1TAB7 PO (12:57)
--- NOTE | 2019-08-10 14:15 | NUR ---
Discharge Note: Pt discharged back to fpc via charter bus driver. Personal belongings inventoried and returned to her per CLAUDIA Rodriges. Pt refused a discharge picture of her toe stating, "there is nothing and I don't want to remove my shoes." Denies smoking cessation. Follow up information reviewed. Prescriptions faxed to [facility]. Pt denies SI/HI and lives in a fpc.
== END 2019-08-10 14:16 | disposition home or self-care (01) | DRG 885 ==
LOC: ADULT MH 18:40
PROVIDERS: ADMIT Psychiatry & Neurology Psychiatry; ATTEND Psychiatry & Neurology Psychiatry
DX: F25.0 Schizoaffective disorder, bipolar type (principal); R45.851 Suicidal ideations; F31.9 Bipolar disorder, unspecified; G47.9 Sleep disorder, unspecified; F41.9 Anxiety disorder, unspecified; Z85.41 Personal history of malignant neoplasm of cervix uteri; Z87.891 Personal history of nicotine dependence; Z23 Encounter for immunization; Z91.041 Radiographic dye allergy status; Z88.0 Allergy status to penicillin; Z91.013 Allergy to seafood
CPT/HCPCS: 36415; 80053; 80061; 80305; 80320; 81001; 81025; 83036; 84443; 85025; 87081; Q2037; Z7610

== ENCOUNTER 2020-11-27 15:18 | Emergency (ER) | payer MEDICARE, MEDICAID ==
[~2020-11-27] VITALS: Ht 157.5 cm; Wt 73.2 kg
[~2020-11-27 15:18] MED LIST changes: -ETON68IM; -LURA120T PO; +LURA20TA PO; +LURA80TA3 PO; -QUET-1 PO; -RISP3TAB3 PO; +RISP3TAB63 PO; +ZOLP5TAB8 PO
[2020-11-27 15:41] LABS: BASOPHILS % (AUTO) 0.4 % (0-1); EOSINOPHILS % (AUTO) 0.4 % (0-6); LYMPHOCYTES # (AUTO) 2.4 X10'3 (1.1-4.8); MEAN CORPUSCULAR HGB CONC 34.1 g/dL (33.0-36.5); MEAN PLATELET VOLUME 7.3 FL (7.4-10.4); MONOCYTES # (AUTO) 0.6 X10'3 (0-0.9); MONOCYTES % (AUTO) 8.2 % (2-12); NEUTROPHILS # (AUTO) 4.3 X10'3 (1.8-7.7); PLATELET COUNT 198 X10'3 (140-440); RED BLOOD COUNT 4.54 X10'6 (4.20-5.60); RED CELL DISTRIBUTION WIDTH 12.3 % (11.5-14.5); WHITE BLOOD COUNT 7.3 X10'3 (4.5-11.0)
[2020-11-27 15:55] LABS: ALANINE AMINOTRANSFERASE 25 U/L (12-78); ALBUMIN/GLOBULIN RATIO 1.1 (1.1-1.5); ALKALINE PHOSPHATASE 67 IU/L (46-116); ANION GAP 11 (8-16); ASPARTATE AMINO TRANSFERASE 15 U/L (10-37); BILIRUBIN,TOTAL 0.5 MG/DL (0.1-1.0); BLOOD UREA NITROGEN 13 MG/DL (7-18); BUN/CREATININE RATIO 18.3 (6.6-38.0); CALCIUM 9.2 MG/DL (8.5-10.1); CHLORIDE 106 MMOL/L (99-107); CREATININE 0.71 MG/DL (0.40-0.90); GLUCOSE 89 MG/DL (70-104); LIPASE 54 U/L (73-393); POTASSIUM 3.9 MMOL/L (3.5-5.1); SODIUM 141 MMOL/L (135-145); TOTAL CARBON DIOXIDE 24.2 MMOL/L (24-32); TOTAL PROTEIN 7.6 G/DL (6.4-8.2); eGFR > 90 ML/MIN
[2020-11-27] MEDS ORDERED: famotidine/PF 10 mg/ml inj IV ONE (16:30)
[2020-11-27] MEDS ORDERED: ondansetron/PF 4mg/2ml inj IV ONE (16:30)
[2020-11-27] MEDS ORDERED: normal saline 1000ML IV soln IVB ONE (16:30)
[2020-11-27 17:48] LABS: URINE HCG NEGATIVE (NEG)
[2020-11-27 18:10] LABS: CLARITY,URINE SLIGHTLY CLOUDY (Clear); COLOR,URINE YELLOW (Yellow); GLUCOSE, URINE NEGATIVE (Neg); KETONES,URINE >=80 mg/dl (Neg); LEUKOCYTE ESTERASE ,URINE NEGATIVE (Neg); NITRITES, URINE NEGATIVE (Neg); OCCULT BLOOD,URINE MODERATE (Neg); PH,URINE 5.5 (4.8-8.0); PROTEIN,URINE NEGATIVE (Neg); UROBILINOGEN,URINE 0.2 E.U/dL (0.2-1.0)
[2020-11-27 18:30] LABS: MUCUS STRANDS MODERATE /LPF (Neg); SQUAMOUS EPITHELIAL CELL,UR MODERATE /LPF (FEW); UA COLLECTION TYPE CLN CATCH MIDSTREAM
[2020-11-27 18:31] LABS: BACTERIA,URINE FEW /HPF (Neg); RBC,URINE 0-2 /HPF (0-2)
[2020-11-27] MEDS ORDERED: lactulose 20gm/30ml cup PO ONE (18:50)
[2020-11-27] MEDS ORDERED: bisacodyl 10mg suppository rectal RC STA (18:50)
[2020-11-27] MEDS ORDERED: POLY17PO10 PO (18:51)
[2020-11-27 18:54] VITALS: BP 106/65
== END 2020-11-27 19:16 | disposition home or self-care (01) ==
LOC: ER 15:19
DX: K59.00 Constipation, unspecified (principal); R10.84 Generalized abdominal pain; Z85.9 Personal history of malignant neoplasm, unspecified; Z98.890 Other specified postprocedural states; Z88.0 Allergy status to penicillin; Z88.8 Allergy status to other drugs, medicaments and biological substances; Z91.013 Allergy to seafood; Z91.018 Allergy to other foods; Z79.899 Other long term (current) drug therapy
CPT/HCPCS: 36415; 74176; 80053; 81001; 81025; 83690; 85025; 87088; 96374; 96375; 99284; J2405; J3490; J7030; 96361